=== PATIENT | female | born 1945 | race Caucasian/White ===

== ENCOUNTER 2019-12-29 05:57 | Day surgery (SDC) | payer OTHER, BC ==
[2019-12-22 13:33] VITALS: BMI 28.3
[2019-12-29] MEDS ORDERED: ROPIVACAINE HCL 0.5% 30ML VIAL ONE (06:41)
[2019-12-29] MEDS ORDERED: MIDAZOLAM HCL 2 MG/2 ML SINGLE DOSE VIAL ONE ×2 (06:41→07:21)
[2019-12-29] MEDS ORDERED: SUCCINYLCHOLINE CHLORIDE 200 MG/10 ML SYRINGE ONE (07:21)
[2019-12-29] MEDS ORDERED: EPHEDRINE SULFATE/0.9% NACL/PF 50 MG/10 ML SYRINGE NR ONE ×2 (07:21→09:16)
[2019-12-29] MEDS ORDERED: PROPOFOL 20 ML ONE ×3 (07:21→09:15)
[2019-12-29] MEDS ORDERED: EPINEPHrine 1:1,000 1 MG/1 ML - 30ML VIAL (INJECTION) ONE (08:27)
[2019-12-29] MEDS ORDERED: ONDANSETRON 4 MG/2 ML VIAL ONE ×2 (09:31→10:34)
[2019-12-29 10:18] VITALS: TEMP 97.6
[2019-12-29] MEDS ORDERED: ceFAZolin SODIUM 1 GM VIAL ONE (10:34)
[2019-12-29] MEDS ORDERED: LIDOCAINE HCL/PF 2% SDV 5ML VIAL ONE (10:34)
[2019-12-29] MEDS ORDERED: DEXAMETHASONE SOD PHOSPHATE 4 MG/1 ML VIAL ONE (10:34)
[2019-12-29] MEDS ORDERED: ONDANSETRON 4 MG/2 ML VIAL IVPUSH PRN (11:09)
[2019-12-29] MEDS ORDERED: oxyCODONE HCL 5 MG TABLET PO PRN ×2 (11:09)
[2019-12-29] MEDS ORDERED: LACTATED RINGERS SOLUTION 1,000 ML IV SCH (11:15)
[2019-12-29 12:01] VITALS: BP 146/73; PULSE 78
--- NOTE | 2019-12-29 12:59 | OP ---
DATE OF OPERATION: 12/29/2019 LOCATION: [facility] SURGEON: Rio King MD VAULT CLERK: MANUEL Vergara POSTOPERATIVE DIAGNOSES: 1. Right shoulder rotator cuff tear. 2. Right shoulder adhesive capsulitis. 3. Right shoulder impingement syndrome. 4. Right shoulder acromioclavicular degenerative joint disorder. 5. Right shoulder superior labral tear, anterior and posterior synovitis. POSTOPERATIVE DIAGNOSES: 1. Right shoulder rotator cuff tear. 2. Right shoulder adhesive capsulitis. 3. Right shoulder impingement syndrome. 4. Right shoulder acromioclavicular degenerative joint disorder. 5. Right shoulder superior labral tear, anterior and posterior synovitis. PROCEDURE: 1. Right shoulder arthroscopy with arthroscopic rotator cuff repair (CPT code 83833). 2. Right shoulder arthroscopy with lysis and resection of adhesions (CPT code 23330). 3. Right shoulder arthroscopy with subacromial decompression (CPT code 22836). 4. Right shoulder arthroscopy with resection of distal clavicle acromioclavicular joint (CPT code 66239. 5. Right shoulder arthroscopy with debridement (CPT code 56388). FINDINGS: 1. Long head biceps tendon tear with chronic tear with no attachment. 2. Superior labral tear from anterior-posterior type 4 with extension into biceps tendon stump. 3. Anterior and posterior lateral fraying. 4. Grade 3 cartilage injury of the glenoid with grade 2 to 3 changes central humerus. 5. Extensive tearing supraspinatus rotator cuff tear. 6. Acromioclavicular changes with inferior spur. 7. Full-thickness scar of subacromial space. 8. Adhesions, scar tissue, glenohumeral synovitis. 9. Anterior lateral acromial spur type 2 acromion. REPAIR TYPE: Two sumv-dl-scmy mattress sutures were placed through the anterior and posterior fibers of the supraspinatus. A mattress suture was then placed at the posterior limb and a separate one in the anterior limb and these were attached to the greater tuberosity humerus through 2 separate Glady anchors. PROCEDURE: Informed consent was obtained. The patient was taken to the operating room where the upper extremity was prepped and draped in a sterile fashion. The shoulder was manipulated for a full range of motion. Posterior incision portal was made and directed to glenohumeral joint. Under direct visualization, an anterior incision and portal was made. Extensive synovitis, as well as chondral injuries throughout the glenohumeral joint were dbrided and removed. Any identified labral injuries, including superior labral tear, anterior and posterior, and anterior labrum torn portions were removed as well. Rotator cuff was visualized and noted to have full-thickness tear. The edges were debrided. Posterior incision portal was redirected to subacromial space where a lateral incision portal was made. Excessive and thickened scar tissue noted throughout the subacromial space, including bursal and scar tissue, were removed. The type 2 acromion was converted into a flattened type 1 using a binta for subacromial decompression. Distal inferior spur at the distal clavicle was also dbrided with the use of accessory portal in the AC joint. The edges of the rotator cuff were identified. Sutures were placed into the rotator cuff and secured using anchors throughout the greater tuberosity. Prior to securing, a bleeding bed was made using a small binta, creating a bleeding surface of the rotator cuff insertion. The shoulder was then drained. A single suture as placed on all portals and a sterile dressing was placed. The patient was transferred to the recovery room without complication. The PA listed above was present and assisted at surgery. Their presence was absolutely medically necessary for the completion of the procedure. They helped hold the arthroscopy, pass instruments (and implants when indicated) and the procedure could not have been completed without their assistance. RIO KING M.D. [id number]
--- NOTE | 2020-01-01 16:10 | PATH ---
Surgical Pathology Report Patient Name: YAMILKA RENDON Med. Rec. #: [id number] /Age/Gender: 1945 (Age: 74) / F Account: [id number] Location: [facility] Taken: 12/29/2019 Received: 12/29/2019 Reported: 01/01/2020 Physicians: Rio Ospina M.D. Specimen(s) Received SHAVINGS RIGHT SHOULDER Clinical History Rotator cuff tear Final Diagnosis SHOULDER, RIGHT, ARTHROSCOPIC SHAVINGS: FIBROSYNOVIAL TISSUE, CARTILAGE AND SKELETAL MUSCLE. Electronically Signed Cristal Carrasquillo M.D. Gross Description Received in formalin, labeled "shavings right shoulder," is a 4.5 x 3.8 x 0.3 cm. aggregate of ferris-yellow soft tissue fragments . A guest services representative portion is submitted in one cassette. /12/29/2019 saudi/12/29/2019
== END 2019-12-29 11:35 | disposition home or self-care (01) ==
LOC: FASU 05:57
PROVIDERS: ATTEND Orthopaedic Surgery
PROC: 0RNJ4ZZ Release Right Shoulder Joint, Percutaneous Endoscopic Approach (ICD-10-PCS; 2019-12-29)
PROC: 0PB94ZZ Excision of Right Clavicle, Percutaneous Endoscopic Approach (ICD-10-PCS; 2019-12-29)
PROC: 0RBJ4ZZ Excision of Right Shoulder Joint, Percutaneous Endoscopic Approach (ICD-10-PCS; 2019-12-29)
PROC: 0LQ14ZZ Repair Right Shoulder Tendon, Percutaneous Endoscopic Approach (ICD-10-PCS; principal; 2019-12-29 08:26)
DX: M75.121 Complete rotator cuff tear or rupture of right shoulder, not specified as traumatic (principal); M75.01 Adhesive capsulitis of right shoulder; M75.41 Impingement syndrome of right shoulder; M19.011 Primary osteoarthritis, right shoulder; M24.111 Other articular cartilage disorders, right shoulder; M65.811 Other synovitis and tenosynovitis, right shoulder
CPT/HCPCS: 82962; 88304-TC; 94760